=== PATIENT | male | born 1995 | race American Indian/Alaskan Native ===

== ENCOUNTER 2021-07-06 12:39 | Emergency (ER) | payer OTHER ==
[2021-07-06] MEDS ORDERED: MORPHINE 4 MG/1 ML INJ IM ONE (12:54)
[2021-07-06] MEDS ORDERED: LIDOCAINE (2%) 20 MG/1 ML VIAL 20 ML MDV INFILTRATI ONE (12:54)
--- NOTE | 2021-07-06 12:55 | Emergency Department Report ---
ED Upper Extremity Inj HPI - General Chief Complaint: Shoulder Injury Stated Complaint: DISLOCATED SHOULDER Time Seen by Provider: 07/06/21 12:54 Source: patient Mode of arrival: Ambulatory Limitations: No Limitations - History of Present Illness Initial Comments: Patient presents with left shoulder pain and injury. He was lifting a TV when his left shoulder dislocated. He has had this happen before. His left shoulder has been dislocated at least twice before. Normally he gets a shot, lays on his stomach, and his arm reduces spontaneously. Patient has no direct trauma. Has no fevers or chills but there is no cough congestion. Has no other joint injury. Pain is a constant and aching pain in the left shoulder that is worse with any kind of movement. He denies numbness or tingling in the left arm. - Related Data Allergies Allergy/AdvReac Type Severity Reaction Status Date / Time Penicillins Allergy Rash Verified 07/06/21 12:41 ED Review of Systems ROS: Stated complaint: DISLOCATED SHOULDER Other details as noted in HPI Comment: All other systems reviewed and negative Constitutional: denies: fever Eyes: denies: vision change ENT: denies: throat pain Respiratory: denies: cough Cardiovascular: denies: chest pain Endocrine: denies: unexplained weight loss Gastrointestinal: denies: abdominal pain Genitourinary: denies: dysuria Musculoskeletal: denies: back pain Skin: denies: rash Neurological: denies: headache Hematological/Lymphatic: denies: easy bruising ED Past Medical Hx - Past Medical History Hx Asthma: Yes Additional medical history: SHOULDER DISLOCATION - Surgical History Past Surgical History?: No - Family History Family history: no significant ED Physical Exam - General Limitations: No Limitations, Other (Pulse ox noted and normal) General appearance: alert, in no apparent distress - Head Head exam: Present: atraumatic, normocephalic - Eye Eye exam: Present: normal appearance, EOMI - ENT ENT exam: Present: normal external ear exam - Neck Neck exam: Present: normal inspection - Respiratory Respiratory exam: Absent: respiratory distress - Cardiovascular Cardiovascular Exam: Absent: JVD - GI/Abdominal GI/Abdominal exam: Present: other (Flat) - Extremities Exam Extremities exam: Present: normal capillary refill, other (Obvious step-off consistent with left shoulder dislocation. There is tenderness with limited range of motion of the left shoulder. There is good sensation involving the left arm. There is no neurovascular compromise noted. Elbow is nontender.). Absent: calf tenderness - Back Exam Back exam: Absent: CVA tenderness (R), CVA tenderness (L) - Neurological Exam Neurological exam: Present: alert, oriented X3, CN II-XII intact. Absent: motor sensory deficit - Psychiatric Psychiatric exam: Present: normal affect, normal mood - Skin Skin exam: Present: warm, dry ED Course Vital Signs 07/06/21 12:44 Temperature 98.6 F Pulse Rate 86 Respiratory 16 Rate Blood Pressure 129/84 O2 Sat by Pulse 100 Oximetry - Reevaluation(s) Reevaluation #1: 07/06/21 12:55 Medication ordered. 07/06/21 13:02 Old records noted. Reevaluation #2: 07/06/21 13:34 Patient was given analgesics. He started to lay down prone. Shoulder reduced spontaneously. Patient was safely discharged. He does have good range of motion. He was placed in a shoulder immobilizer. ED Medical Decision Making - Medical Decision Making Patient presented with spontaneous shoulder dislocation and relocation after being here. There was no neurologic deficit. He had no direct trauma suggestive of fracture. He has had a recurrent dislocation previously. He was referred to orthopedic surgery. He has no evidence of neurovascular compromise. Deltoid sensation is intact. He has no other complaints and no other joint issues at this time. Critical Care Time: No Critical care attestation.: If time is entered above; I have spent that time in minutes in the direct care of this critically ill patient, excluding procedure time. ED Disposition Clinical Impression: Recurrent dislocation, left shoulder Disposition: HOME / SELF CARE / HOMELESS Is pt being admited?: No Condition: Stable Instructions: Shoulder Dislocation, Recurrent Shoulder Laxity and Instability Additional Instructions: Limit lifting. Apply ice. Rest and elevate. Use the sling. Follow-up with your regular doctor and the orthopedic surgeon as discussed. Referrals: PRIMARY CARE, [Referring] - 3-5 Days TOMER THOMASON MD [Staff Physician] - 3-5 Days ESE MODI MD [Staff Physician] - 3-5 Days
[2021-07-06 14:17] VITALS: BP 125/75
== END 2021-07-06 14:24 | disposition home or self-care (01) ==
LOC: ED 12:39
DX: M24.412 Recurrent dislocation, left shoulder (principal); J45.909 Unspecified asthma, uncomplicated; Z88.0 Allergy status to penicillin
CPT/HCPCS: 96372; 99282; J2270; J3490